=== PATIENT | female | born 1930 | race Caucasian/White ===

== ENCOUNTER → 2017-05-27 | Outpatient (CLI) | payer OTHER | LOC: CIMAGING 14:49 | PROVIDERS: ATTEND Internal Medicine | DX: R06.02 Shortness of breath (principal) | CPT/HCPCS: 71020; G0463 ==

== ENCOUNTER → 2018-08-26 | Outpatient (CLI) | payer OTHER | LOC: CIMAGING 12:35 | PROVIDERS: ATTEND Physician Assistant Medical | DX: S22.32XA Fracture of one rib, left side, initial encounter for closed fracture (principal) | CPT/HCPCS: 71101-PO ==

== ENCOUNTER → 2018-10-12 | Outpatient (CLI) | payer OTHER | LOC: CIMAGING 11:17 | PROVIDERS: ATTEND Otolaryngology | DX: J32.0 Chronic maxillary sinusitis (principal); J34.2 Deviated nasal septum; I67.2 Cerebral atherosclerosis; G44.229 Chronic tension-type headache, not intractable | CPT/HCPCS: 70486-PO ==